=== PATIENT | male | born 1985 | race Two or more races ===

== ENCOUNTER 2016-08-21 12:58 | Emergency (ER) | payer SELFPAY ==
[~2016-08-21] VITALS: Ht 170.2 cm; Wt 84.0 kg
[2016-08-21] MEDS ORDERED: METHOCARBAMOL 750 MG TABLET ONE (13:50)
[2016-08-21] MEDS ORDERED: HYDROmorphone 2 MG/ML, 1ML ONE (13:50)
[2016-08-21] MEDS ORDERED: ONDANSETRON ODT 4 MG ONE (13:51)
[2016-08-21] MEDS ORDERED: ONDANSETRON ODT 8 MG ONE (13:57)
[2016-08-21] MEDS ORDERED: HYDROmorphone 1 MG/ML, 1ML IM ONE (14:00)
[2016-08-21] MEDS ORDERED: METHOCARBAMOL 750 MG TABLET PO ONE (14:00)
[2016-08-21] MEDS ORDERED: ONDANSETRON ODT 8 MG PO ONE (14:00)
[2016-08-21 15:08] VITALS: BP 110/63
== END 2016-08-21 15:35 | disposition home or self-care (01) ==
LOC: ED 14:47
DX: S39.012A Strain of muscle, fascia and tendon of lower back, initial encounter (principal); X58.XXXA Exposure to other specified factors, initial encounter; Y93.E2 Activity, laundry; Y92.89 Other specified places as the place of occurrence of the external cause; Y99.8 Other external cause status
CPT/HCPCS: 72131; 96372; 99284; J1170; Q0162

== ENCOUNTER 2019-07-25 11:23 | Emergency (ER) | payer SELFPAY ==
[~2019-07-25] VITALS: Ht 170.2 cm; Wt 88.0 kg
[2019-07-25 11:44] VITALS: BP 119/75
== END 2019-07-25 13:09 | disposition home or self-care (01) ==
LOC: ED 13:03
DX: S63.641A Sprain of metacarpophalangeal joint of right thumb, initial encounter (principal); S60.221A Contusion of right hand, initial encounter; W01.0XXA Fall on same level from slipping, tripping and stumbling without subsequent striking against object, initial encounter; Y93.01 Activity, walking, marching and hiking; Y92.098 Other place in other non-institutional residence as the place of occurrence of the external cause; Y99.8 Other external cause status
CPT/HCPCS: 29125; 99283